=== PATIENT | male | born 1960 | race Caucasian/White ===

== ENCOUNTER 2022-03-25 19:13 | Inpatient (IN) ==
[~2022-03-25 19:13] MED LIST: HEPARIN/NACL 0.9% 2 UNITS/ML 2,000 UNIT/1,000 ML BAG IV ONE
[2022-03-25] MEDS ORDERED: MIDAZOLAM 2 MG/2 ML VIAL ONE (20:10)
[2022-03-25] MEDS ORDERED: fentaNYL 100 MCG/2 ML VIAL ONE (20:10)
[2022-03-25] MEDS ORDERED: TIROFIBAN 5,000 MCG/100 ML PREMIX IV SCH (20:43)
[2022-03-25] MEDS ORDERED: CLOPIDOGREL 300 MG TABLET ONE (20:47)
[2022-03-25] MEDS ORDERED: CLOPIDOGREL 75 MG TABLET ONE (20:47)
[2022-03-25] MEDS ORDERED: ZALEPLON 5 MG CAPSULE PO PRN (21:19)
[2022-03-25] MEDS ORDERED: NITROGLYCERIN SL 0.4 MG TABLET SL PRN (21:19)
[2022-03-25] MEDS ORDERED: HYDROmorphone 1 MG/1 ML SYRINGE IV PRN (21:19)
[2022-03-25] MEDS ORDERED: SODIUM CHLORIDE 0.9% 1,000 ML IV SCH (21:45)
[2022-03-25] MEDS: METOPROLOL TARTRATE 50 MG TABLET PO SCH (22:40)
[2022-03-26] MEDS: ONDANSETRON 4 MG/2 ML VIAL IV PRN ×2 (02:54→16:59)
[2022-03-26 06:19] LABS: Basophils # 0.1 10*3/uL (0.0-0.2); Basophils % 0.4 % (0.0-0.8); Eosinophils # 0.1 10*3/uL (0.0-0.87); Eosinophils % 0.7 % (0.00-10.9); Hematocrit 43.9 VOL% (42.0-52.0); Hemoglobin 14.9 GM/DL (14.0-18.0); Immature Granulocytes % 0.5 %; Immature Granulocytes Absolute 0.07 #; Lymphocytes # 1.6 10*3/uL (1.4-4.0); Lymphocytes % 12.1 % (21.2-54.2); Mean Corpuscular HGB Conc 33.9 GM/DL (32-36); Mean Corpuscular Volume 89.4 FL (87-102); Mean Platelet Volume 10.1 FL (9.6-12.0); Monocytes # 0.8 10*3/uL (0.11-0.8); Monocytes % 6.5 % (1.7-12.7); Neutrophils % 79.8 % (38.7-73.9); Platelet Count 266 T/CUMM (130-400); Red Blood Count 4.91 MC/CUMM (3.8-5.5); Red Cell Distribution Width 13.5 % (9.3-17.3)
[2022-03-26 06:33] LABS: Osmolality,Calculated 279.3 MOS/KG (273-304)
[2022-03-26] MEDS: ASPIRIN EC 81 MG TABLET PO SCH (08:02)
[2022-03-26] MEDS: METOPROLOL TARTRATE 50 MG TABLET PO SCH ×2 (08:03→21:30)
[2022-03-26] MEDS: PANTOPRAZOLE 40 MG TABLET PO SCH (08:03)
[2022-03-26] MEDS: CLOPIDOGREL 75 MG TABLET PO SCH (08:03)
[2022-03-26] MEDS ORDERED: CYCLOBENZAPRINE 10 MG TABLET PO PRN (08:23)
[2022-03-26] MEDS ORDERED: NON-FORMULARY MEDICATION (Evolocumab [Repatha Sureclick] 140 mg/mL pen injector) SUBCUT SCH (08:30)
[2022-03-26] MEDS ORDERED: ACETAMINOPHEN 325 MG TABLET PO PRN (08:37)
[2022-03-26] MEDS ORDERED: MAGNESIUM HYDROXIDE SUSP 30 ML UDCUP PO PRN (08:37)
[2022-03-26] MEDS ORDERED: hydrALAZINE 20 MG/1 ML VIAL IV PRN (08:37)
[2022-03-26] MEDS ORDERED: DOCUSATE SODIUM 100 MG CAPSULE PO PRN (08:37)
[2022-03-26] MEDS ORDERED: ONDANSETRON 4 MG/2 ML VIAL IV PRN (08:37)
[2022-03-26] MEDS ORDERED: ALUMINUM/MAGNES/SIMETH MAX STR 30 ML UDCUP PO PRN (08:37)
[2022-03-26] MEDS: LEVOTHYROXINE 125 MCG TABLET PO SCH (08:41)
[2022-03-26] MEDS: LEVOTHYROXINE 100 MCG TABLET PO SCH (08:41)
[2022-03-26] MEDS: LEVOTHYROXINE 25 MCG TABLET PO SCH (08:41)
[2022-03-26] MEDS: DICLOFENAC 1% GEL 100 GM TUBE TOP SCH ×4 (08:42→21:34)
[2022-03-26] MEDS: CELECOXIB 200 MG CAPSULE PO SCH ×2 (10:13→21:29)
[2022-03-26] MEDS ORDERED: PROMETHAZINE 25 MG/1 ML VIAL IM ONE (18:44)
[2022-03-26] MEDS ORDERED: GABAPENTIN 300 MG CAPSULE PO SCH (21:00)
[2022-03-26] MEDS ORDERED: TAMSULOSIN 0.4 MG CAPSULE PO SCH ×2 (21:00→21:30)
[2022-03-26] MEDS ORDERED: LOSARTAN 50 MG TABLET PO SCH (21:00)
[2022-03-26] MEDS ORDERED: amLODIPine 5 MG TABLET PO SCH (21:00)
[2022-03-27 05:09] LABS: Basophils # 0.1 10*3/uL (0.0-0.2); Basophils % 0.9 % (0.0-0.8); Eosinophils # 0.3 10*3/uL (0.0-0.87); Eosinophils % 2.9 % (0.00-10.9); Hematocrit 46.3 VOL% (42.0-52.0); Hemoglobin 15.2 GM/DL (14.0-18.0); Immature Granulocytes % 0.5 %; Immature Granulocytes Absolute 0.04 #; Lymphocytes # 2.1 10*3/uL (1.4-4.0); Lymphocytes % 23.3 % (21.2-54.2); Mean Corpuscular HGB Conc 32.8 GM/DL (32-36); Mean Platelet Volume 10.2 FL (9.6-12.0); Monocytes # 0.7 10*3/uL (0.11-0.8); Monocytes % 8.2 % (1.7-12.7); Neutrophils % 64.2 % (38.7-73.9); Platelet Count 260 T/CUMM (130-400); Red Blood Count 5.09 MC/CUMM (3.8-5.5); Red Cell Distribution Width 13.6 % (9.3-17.3); White Blood Count 8.9 T/CUMM (4-12)
[2022-03-27 05:26] LABS: Calcium 8.8 MG/DL (8.5-10.1); Osmolality,Calculated 275.5 MOS/KG (273-304); Potassium 4.1 MMOL/L (3.5-5.1); Risk Ratio 2.14; VLDL Cholesterol 19.8 MG/DL
[2022-03-27] MEDS: LEVOTHYROXINE 125 MCG TABLET PO SCH (05:41)
[2022-03-27] MEDS: LEVOTHYROXINE 25 MCG TABLET PO SCH (05:41)
[2022-03-27] MEDS: LEVOTHYROXINE 100 MCG TABLET PO SCH (05:41)
[2022-03-27 07:48] VITALS: BP 112/74
[2022-03-27] MEDS: CELECOXIB 200 MG CAPSULE PO SCH (09:39)
[2022-03-27] MEDS: CLOPIDOGREL 75 MG TABLET PO SCH (09:39)
[2022-03-27] MEDS: METOPROLOL TARTRATE 50 MG TABLET PO SCH (09:39)
[2022-03-27] MEDS: PANTOPRAZOLE 40 MG TABLET PO SCH (09:39)
[2022-03-27] MEDS: ASPIRIN EC 81 MG TABLET PO SCH (09:39)
[2022-03-27] MEDS: DICLOFENAC 1% GEL 100 GM TUBE TOP SCH (09:40)
== END 2022-03-27 11:30 | disposition home or self-care (01) | DRG 247 ==
LOC: N.CC 19:13 → N.ICU 21:12 → N.TELEN 03-26 17:27
PROVIDERS: ADMIT Internal Medicine Interventional Cardiology; ATTEND Internal Medicine Interventional Cardiology
PROC: CLCCHCL (ICD-10-PCS; 2022-03-25 19:45)